=== PATIENT | male | born 1980 | race Caucasian/White ===

== ENCOUNTER 2016-11-30 16:44 | Emergency (ER) | payer OTHER ==
[~2016-11-30] VITALS: Ht 185.4 cm; Wt 122.5 kg
[2016-11-30] MEDS ORDERED: CLINDAMYCIN 900 MG in APPROPRIATE DILUENT 1 EA IV ONE (17:30)
[2016-11-30] MEDS ORDERED: KETOROLAC 30 MG/ML VIAL (J1885) IV ONE (17:30)
[2016-11-30 18:00] LABS: BASO % 0.2 % (0.0-1.0); EOS # 0.1 K/mm3 (0.0-0.50); EOS % 0.8 % (0.0-3.0); LARGE UNSTAINED CELL # 0.1 K/mm3 (0.0-0.4); LARGE UNSTAINED CELL % 1.1 % (0.0-4.0); LYMPH # 1.9 K/mm3 (1.5-4.5); LYMPH % 18.3 % (24.0-44.0); MEAN CORPUSCULAR HEMOGLOBIN 30.3 pg (27.0-33.0); MEAN CORPUSCULAR VOLUME 86.6 fl (80.0-96.0); MONO # 0.4 K/mm3 (0.0-0.8); NEUTROPHILS # 7.6 K/mm3 (1.8-7.7); NEUTROPHILS % 75.6 % (36.0-66.0); PLATELET COUNT, AUTOMATED 227 k/mm3 (150-450); RED CELL DISTRIBUTION WIDTH 13.1 % (11.5-14.5)
[2016-11-30 18:18] LABS: ANION GAP 8 MEQ/L (8-16); BLOOD UREA NITROGEN 8 MG/DL (7-18); CALCIUM LEVEL 8.9 MG/DL (8.5-10.1); CARBON DIOXIDE LEVEL 28 MEQ/L (21-32); CHLORIDE LEVEL 102 MEQ/L (98-107); CREATININE FOR GFR 1.01 MG/DL (0.70-1.30); GLOMERULAR FILTRATION RATE > 60.0 (>60); GLUCOSE, FASTING 293 MG/DL (70-105); POTASSIUM SERUM 4.6 MEQ/L (3.5-5.1); SODIUM LEVEL 138 MEQ/L (136-145)
[2016-11-30] MEDS ORDERED: NS 1,000 ML IV ONE (18:30)
[2016-11-30 18:32] LABS: ERYTHROCYTE SEDIMENTATION RATE 4 mm/hr (0-15)
[2016-11-30] MEDS ORDERED: ISOVUE-370 76% 100ML VIAL (Q9967) As Ordered ONE (20:37)
--- NOTE | 2016-11-30 21:40 | REPUSA ---
HISTORY: Dental abscess TECHNIQUE : CT neck was performed following administration of IV contrast. CT NECK WITH CONTRAST: Paranasal sinuses: Inferior left maxillary 11 mm mucus retention cyst. Dentition: Maxillary dentition is absent. Mandibular dentition demonstrates multiple carries; however , there is no strong clinical evidence of mandibular osteomyelitis. There is asymmetric swelling of t he gingival tissues of the left mandible, without discrete fluid collection. Oropharynx: Patent. Hypopharynx: Patent. Trachea: Midline and patent. Thyroid: No visible masses. Lymph nodes: No pathologic lymphadenopathy. Cervical spine: No compression or listhesis. Lung apices: Clear. Right carotid: Patent. Right vertebral: Patent. Left carotid: Patent. Left vertebral: Patent. IMPRESSION: Findings suggesting gingivitis and soft tissue inflammation of the left mandibular dentit ion, without drainable fluid collections.
[2016-11-30] MEDS ORDERED: CLEO300C2 PO (21:53)
[2016-11-30] MEDS ORDERED: NAPR500T PO (21:53)
[2016-11-30] MEDS ORDERED: NORCO 5/325MG TABLET (BULK) PO ONE (22:00)
[2016-11-30 22:07] VITALS: BP 137/88
== END 2016-11-30 22:11 | disposition home or self-care (01) ==
LOC: M ED 17:58
DX: K02.9 Dental caries, unspecified (principal); K05.00 Acute gingivitis, plaque induced; E13.65 Other specified diabetes mellitus with hyperglycemia
CPT/HCPCS: 70491; 80048; 83036; 85025; 85652; 86140; 96361; 96365; 96375; 99283; J1885; Q9967

== ENCOUNTER 2017-03-09 16:14 | Emergency (ER) | payer MEDICAID, OTHER ==
[~2017-03-09] VITALS: Ht 185.4 cm; Wt 121.0 kg
[2017-03-09 16:14] VITALS: BP 145/84
[~2017-03-09 16:14] MED LIST: CLEO300C2 PO; NAPR500T PO
[2017-03-09] MEDS ORDERED: NAPR500T PO (16:54)
[2017-03-09] MEDS ORDERED: CLIN150C14 PO (16:54)
[2017-03-09] MEDS ORDERED: NAPROXEN 250 MG TAB PO ONE (17:00)
[2017-03-09] MEDS ORDERED: CLINDAMYCIN 150 MG CAP PO ONE (17:00)
== END 2017-03-09 17:09 | disposition home or self-care (01) ==
LOC: M ED 17:04
DX: K04.6 Periapical abscess with sinus (principal); F17.210 Nicotine dependence, cigarettes, uncomplicated

== ENCOUNTER → 2017-04-28 | Outpatient (CLI) | payer OTHER ==
[~2017-04-28] MED LIST changes: +CLIN150C14 PO
[2017-04-28 11:30] LABS: SQUAMOUS EPITHELIAL CELL URINE SMALL AMOUNT /hpf (SMALL AMT)
[2017-04-28 11:32] LABS: BACTERIA, URINE NONE SEEN; HYALINE CAST, URINE NONE SEEN /lpf (0-1); MICROSCOPIC EXAM PERFORMED
== END ==
LOC: M LAB 10:42
PROVIDERS: ATTEND Family Medicine
DX: E11.9 Type 2 diabetes mellitus without complications (principal)

== ENCOUNTER 2017-07-26 15:52 | Emergency (ER) | payer OTHER ==
[~2017-07-26] VITALS: Ht 185.4 cm; Wt 120.5 kg
[2017-07-26] MEDS ORDERED: METF500T13 PO ×2 (16:02)
[2017-07-26] MEDS ORDERED: NEUR300C PO (16:02)
[2017-07-26] MEDS ORDERED: ANEXSIA, NORCO 7.5MG/325MG TABLET(HYDROCODONE/APAP) PO ONE (16:45)
[2017-07-26 17:06] LABS: MEAN CORPUSCULAR HEMOGLOBIN 29.4 pg (27.0-33.0); MEAN CORPUSCULAR VOLUME 84.1 fl (80.0-96.0); PLATELET COUNT, AUTOMATED 259 10^3/uL (150-450); RED CELL DISTRIBUTION WIDTH 12.9 % (11.5-14.5); WHITE BLOOD COUNT 11.9 10^3/uL (4.0-10.0)
--- NOTE | 2017-07-26 18:00 | REPUSA ---
Clinical history: redness, swelling. Findings: Real-time ultrasound imaging of the left groin was performed. Normal heterogeneous fibrogla ndular tissue is noted. Mild soft tissue edema is seen at this site. There is no evidence of a hernia . No focal defined mass or cystic lesion is appreciated. No evidence of calcifications are appreciate d. No other gross abnormalities. Impression: Mild soft tissue edema at the site of concern. No evidence of a hernia. No discrete fluid collection identified.
--- NOTE | 2017-07-26 18:00 | REPUSA ---
Clinical history: Pain. Findings: Real-time ultrasound imaging of the testicles and scrotum was performed. The right testicle measures 5.0 x 2.9 x 3.2 cm. The left testicle measures 5.0 x 2.6 x 2.8 cm. The testicles demonstrat e normal echo texture and echogenicity. Normal color Doppler flow and arterial waveforms are seen asha aterally. Small bilateral hydroceles are seen. Impression: Unremarkable ultrasound examination of the testicles. Small bilateral hydroceles.
[2017-07-26 19:14] LABS: ANION GAP 9 MEQ/L (8-16); BLOOD UREA NITROGEN 13 MG/DL (7-18); CARBON DIOXIDE LEVEL 24 MEQ/L (21-32); CHLORIDE LEVEL 101 MEQ/L (98-107); CREATININE FOR GFR 0.97 MG/DL (0.70-1.30); GLOMERULAR FILTRATION RATE > 60.0 (>60); GLUCOSE, FASTING 320 MG/DL (70-105); POTASSIUM SERUM 4.1 MEQ/L (3.5-5.1); SODIUM LEVEL 134 MEQ/L (136-145)
[2017-07-26] MEDS ORDERED: DOXY-278 PO (19:22)
[2017-07-26] MEDS ORDERED: HYDR-3713 PO (19:22)
[2017-07-26] MEDS ORDERED: DOXYCYCLINE HYCLATE 100 MG TAB PO ONE (19:30)
[2017-07-26 19:33] VITALS: BP 145/94
== END 2017-07-26 19:39 | disposition home or self-care (01) ==
LOC: M ED 15:52
DX: N49.2 Inflammatory disorders of scrotum (principal); L03.314 Cellulitis of groin; N43.3 Hydrocele, unspecified; E11.9 Type 2 diabetes mellitus without complications; F17.200 Nicotine dependence, unspecified, uncomplicated; Z79.84 Long term (current) use of oral hypoglycemic drugs; Z79.899 Other long term (current) drug therapy

== ENCOUNTER 2017-10-12 10:20 | Emergency (ER) | payer OTHER | END 2017-10-12 13:56 | disposition home or self-care (01) | LOC: M ED 10:20 | DX: K05.219 Aggressive periodontitis, localized, unspecified severity (principal); K02.9 Dental caries, unspecified; R03.0 Elevated blood-pressure reading, without diagnosis of hypertension; E11.9 Type 2 diabetes mellitus without complications; F17.200 Nicotine dependence, unspecified, uncomplicated; Z79.899 Other long term (current) drug therapy; Z79.84 Long term (current) use of oral hypoglycemic drugs | CPT/HCPCS: 99283 ==

== ENCOUNTER → 2018-02-02 | Outpatient (REF) | payer OTHER ==
[2018-02-02 14:21] LABS: ANION GAP 8 MEQ/L (8-16); BLOOD UREA NITROGEN 12 MG/DL (7-18); CALCIUM LEVEL 9.3 MG/DL (8.5-10.1); CARBON DIOXIDE LEVEL 26 MEQ/L (21-32); CHLORIDE LEVEL 105 MEQ/L (98-107); CHOLESTEROL LEVEL 182 MG/DL (<200); CHOLESTEROL RISK RATIO 5.352 (<5); CREATININE FOR GFR 0.97 MG/DL (0.70-1.30); GLOMERULAR FILTRATION RATE > 60.0 (>60); GLUCOSE, FASTING 134 MG/DL (70-100); HDL CHOLESTEROL 34 MG/DL (>40); LDL CHOLESTEROL 98.2 MG/DL (<100); NON-HDL-C 148 MG/DL; POTASSIUM SERUM 4.6 MEQ/L (3.5-5.1); SODIUM LEVEL 139 MEQ/L (136-145); TRIGLYCERIDES LEVEL 249 MG/DL (<150)
[2018-02-02 14:25] LABS: ESTIMATED AVERAGE GLUCOSE 169 MG/DL (60-110); HEMOGLOBIN A1c 7.5 %
[2018-02-02 14:51] LABS: CREATININE, URINE 78.2 MG/DL; MALB URINE SIEMENS 21.3 MG/L; MAU/CREAT RATIO 27.2 MCG/MG (0.0-30.0)
== END ==
LOC: M SFHCPLAZ 11:42
DX: E11.65 Type 2 diabetes mellitus with hyperglycemia (principal)
CPT/HCPCS: 83036

== ENCOUNTER 2018-03-02 08:25 | Emergency (ER) | payer OTHER | END 2018-03-02 09:41 | disposition home or self-care (01) | LOC: M ED 08:25 | DX: S02.5XXA Fracture of tooth (traumatic), initial encounter for closed fracture (principal); K02.9 Dental caries, unspecified; K04.7 Periapical abscess without sinus; X58.XXXA Exposure to other specified factors, initial encounter; Y92.9 Unspecified place or not applicable; Y93.9 Activity, unspecified; Y99.9 Unspecified external cause status; E11.9 Type 2 diabetes mellitus without complications; Z72.0 Tobacco use; Z79.84 Long term (current) use of oral hypoglycemic drugs; Z79.899 Other long term (current) drug therapy | CPT/HCPCS: 99282 ==

== ENCOUNTER → 2018-06-08 | Outpatient (REF) | payer OTHER ==
[2018-06-08 13:07] LABS: ALBUMIN 4.2 GM/DL (3.2-5.2); ALBUMIN/GLOBULIN RATIO 1.24 (1.00-1.93); ALKALINE PHOSPHATASE 94 U/L (45-117); ALT/SGPT 34 U/L (12-78); ANION GAP 11 MEQ/L (8-16); AST/SGOT 15 U/L (7-37); BILIRUBIN,TOTAL 0.3 MG/DL (0.2-1.0); BLOOD UREA NITROGEN 12 MG/DL (7-18); CALCIUM LEVEL 9.1 MG/DL (8.5-10.1); CARBON DIOXIDE LEVEL 24 MEQ/L (21-32); CHLORIDE LEVEL 104 MEQ/L (98-107); CREATININE FOR GFR 0.83 MG/DL (0.70-1.30); GLOMERULAR FILTRATION RATE > 60.0 (>60); GLUCOSE, FASTING 134 MG/DL (70-100); POTASSIUM SERUM 4.5 MEQ/L (3.5-5.1); SODIUM LEVEL 139 MEQ/L (136-145); TOTAL PROTEIN 7.6 GM/DL (6.4-8.2)
[2018-06-08 13:10] LABS: BASO # 0.1 10^3/uL (0.0-0.2); BASO % 0.7 % (0.0-1.0); EOS # 0.1 10^3/uL (0.0-0.50); EOS % 1.5 % (0.0-3.0); HEMATOCRIT 52.4 % (42.0-52.0); HEMOGLOBIN 17.8 g/dl (13.5-17.5); IMMATURE GRANULOCYTE % 0.4 % (0-3.0); LYMPH # 2.7 10^3/uL (1.5-4.5); LYMPH % 32.7 % (24.0-44.0); MEAN CORPUSCULAR HEMOGLOBIN 29.1 pg (27.0-33.0); MEAN CORPUSCULAR VOLUME 85.8 fl (80.0-96.0); MONO # 0.6 10^3/uL (0.0-0.8); NEUTROPHILS # 4.7 10^3/uL (1.8-7.7); NEUTROPHILS % 57.7 % (36.0-66.0); PLATELET COUNT, AUTOMATED 238 10^3/uL (150-450); RED BLOOD COUNT 6.11 10^6/uL (4.30-6.10); RED CELL DISTRIBUTION WIDTH 13.8 % (11.5-14.5); WHITE BLOOD COUNT 8.2 10^3/uL (4.0-10.0)
== END ==
LOC: M SFHCPLAZ 08:14
DX: G62.9 Polyneuropathy, unspecified (principal)

== ENCOUNTER → 2018-10-06 | Outpatient (REF) | payer OTHER ==
[~2018-10-06] MED LIST changes: +DOXY-350 PO; +HYDR-3713 PO; +IBUP80TA PO; +JARD1TAB3 PO; +METF500T13 PO; +NAPR-50 PO; -NAPR500T PO; +NEUR300C PO; +NORCOTAB PO; +PENI500T OR; +PERC5TAB12 PO; +TYLE325T5 PO; +XYZA5TAB2 PO
[2018-10-06 15:47] LABS: BLOOD UREA NITROGEN 15 MG/DL (7-18); CALCIUM LEVEL 9.5 MG/DL (8.5-10.1); CARBON DIOXIDE LEVEL 24 MEQ/L (21-32); CHLORIDE LEVEL 104 MEQ/L (98-107); CREATININE FOR GFR 0.91 MG/DL (0.70-1.30); GLOMERULAR FILTRATION RATE > 60.0 (>60); GLUCOSE, FASTING 157 MG/DL (70-100); POTASSIUM SERUM 4.5 MEQ/L (3.5-5.1); SODIUM LEVEL 138 MEQ/L (136-145)
[2018-10-06 16:28] LABS: HEMOGLOBIN A1c 7.9 %
[2018-10-06 16:29] LABS: CREATININE, URINE 57.4 MG/DL; MALB URINE SIEMENS 30.2 MG/L; MAU/CREAT RATIO 52.6 MCG/MG (0.0-30.0)
== END ==
LOC: M SFHCPLAZ 11:49
PROVIDERS: ATTEND Family Medicine
DX: G62.9 Polyneuropathy, unspecified (principal); E11.65 Type 2 diabetes mellitus with hyperglycemia

== ENCOUNTER 2019-03-29 20:37 | Emergency (ER) | payer OTHER ==
[~2019-03-29] VITALS: Ht 185.4 cm; Wt 118.2 kg
[~2019-03-29 20:37] MED LIST changes: +HYDR-3715 PO; -NAPR-50 PO; +NAPR-837 PO; -NORCOTAB PO
[2019-03-29] MEDS ORDERED: STEG15TA (20:43)
[2019-03-29 23:15] VITALS: BP 158/87
--- NOTE | 2019-03-30 07:44 | REP ---
Fifth digit right foot four views: I suspect a nondisplaced fracture at the neck of the middle phalange. I also suspect a nondisplaced fracture at the neck of the distal phalange. There is diffuse soft tissue edema. There are no calcifications or foreign bodies. Electronically Signed by Alden Baker MD 03/30/2019 07:37 A
== END 2019-03-29 23:17 | disposition home or self-care (01) ==
LOC: M ED 20:37
DX: S92.354A Nondisplaced fracture of fifth metatarsal bone, right foot, initial encounter for closed fracture (principal); W23.0XXA Caught, crushed, jammed, or pinched between moving objects, initial encounter; Y92.89 Other specified places as the place of occurrence of the external cause; Y99.0 Civilian activity done for income or pay; E11.9 Type 2 diabetes mellitus without complications; Z79.84 Long term (current) use of oral hypoglycemic drugs

== ENCOUNTER → 2019-08-05 | Outpatient (REF) | payer OTHER ==
[~2019-08-05] MED LIST changes: +STEG15TA
[2019-08-05 17:36] LABS: HEMOGLOBIN A1c 7.6 %
[2019-08-05 17:49] LABS: BLOOD UREA NITROGEN 13 MG/DL (7-18); CALCIUM LEVEL 9.1 MG/DL (8.5-10.1); CARBON DIOXIDE LEVEL 30 MEQ/L (21-32); CHLORIDE LEVEL 102 MEQ/L (98-107); CREATININE FOR GFR 1.03 MG/DL (0.70-1.30); GLOMERULAR FILTRATION RATE > 60.0 (>60); GLUCOSE, FASTING 126 MG/DL (70-100); POTASSIUM SERUM 4.1 MEQ/L (3.5-5.1); SODIUM LEVEL 138 MEQ/L (136-145)
== END ==
LOC: M SFHCPLAZ 15:39
PROVIDERS: ATTEND Physician Assistant
DX: E11.9 Type 2 diabetes mellitus without complications (principal)

== ENCOUNTER 2020-05-08 23:26 | Emergency (ER) | payer OTHER ==
[~2020-05-08] VITALS: Ht 185.4 cm; Wt 120.5 kg
[2020-05-08] MEDS ORDERED: GABA-845 PO (23:34)
[2020-05-09 00:30] LABS: BASO # 0.1 10^3/uL (0.0-0.2); BASO % 0.5 % (0.0-1.0); EOS # 0.1 10^3/uL (0.0-0.5); EOS % 0.7 % (0.0-3.0); HEMATOCRIT 44.9 % (42.0-52.0); HEMOGLOBIN 16.2 g/dl (13.5-17.5); LYMPH # 1.9 10^3/uL (1.5-5.0); LYMPH % 19.5 % (24.0-44.0); MEAN CORPUSCULAR HEMOGLOBIN 30.3 pg (27.0-33.0); MEAN CORPUSCULAR HGB CONC 36.1 g/dl (32.0-36.5); MEAN CORPUSCULAR VOLUME 83.9 fl (80.0-96.0); MONO # 0.5 10^3/uL (0.0-0.8); MONO % 5.5 % (0.0-5.0); NEUTROPHILS # 7.2 10^3/uL (1.5-8.5); NEUTROPHILS % 73.3 % (36.0-66.0); PLATELET COUNT, AUTOMATED 219 10^3/uL (150-450); RED BLOOD COUNT 5.35 10^6/uL (4.30-6.10); WHITE BLOOD COUNT 9.8 10^3/uL (4.0-10.0)
[2020-05-09] MEDS ORDERED: GI COCKTAIL 50ML BTL(HYOSCYAMINE/MAALOX/LIDOCAINE VISCOUS)(1:3:1) PO ONE (00:45)
[2020-05-09] MEDS ORDERED: NS 1,000 ML IV ONE (00:45)
[2020-05-09] MEDS ORDERED: ONDANSETRON 4MG/2ML VIAL IV ONE (00:45)
[2020-05-09 01:00] LABS: ALBUMIN 3.8 GM/DL (3.2-5.2); ALT/SGPT 84 U/L (12-78); BILIRUBIN,DIRECT 0.2 MG/DL (0.0-0.2); BILIRUBIN,TOTAL 0.5 MG/DL (0.2-1.0); BLOOD UREA NITROGEN 13 MG/DL (7-18); CALCIUM LEVEL 9.4 MG/DL (8.5-10.1); CARBON DIOXIDE LEVEL 24 MEQ/L (21-32); CHLORIDE LEVEL 101 MEQ/L (98-107); CK-MB VALUE MASS < 1.0 NG/ML (<3.6); CPK CREATINE PHOSPHOKINASE 94 U/L (39-308); CREATININE FOR GFR 1.02 MG/DL (0.70-1.30); GLOMERULAR FILTRATION RATE > 60.0 (>60); GLUCOSE, FASTING 264 MG/DL (70-100); LIPASE 115 U/L (73-393); MB/CK RELATIVE INDEX 1.06 (< OR =4); POTASSIUM SERUM 4.1 MEQ/L (3.5-5.1); SODIUM LEVEL 134 MEQ/L (136-145); TOTAL PROTEIN 7.4 GM/DL (6.4-8.2); TROPONIN I < 0.02 NG/ML (< 0.10)
[2020-05-09] MEDS ORDERED: KETOROLAC 30 MG/ML 1ML VIAL IV ONE (01:30)
[2020-05-09] MEDS ORDERED: PANTOPRAZOLE 40MG VIAL (C9113 PER 1) IV ONE (01:30)
[2020-05-09] MEDS ORDERED: ISOVUE-370 76% 100ML VIAL As Ordered ONE (01:38)
--- NOTE | 2020-05-09 02:14 | REPVR ---
PROCEDURE INFORMATION: Exam: CT Abdomen and Pelvis with Contrast Exam date and time: 05/09/20 (1:46am) Age: 39 years old Clinical indication: Epigastric pain TECHNIQUE: Imaging protocol: Computed tomography of the abdomen and pelvis with intravenous contrast. Radiation optimization: All CT scans at this facility use at least one of these dose optimization techniques: automated exposure control; mA and/or kV adjustment per patient size (includes targeted exams where dose is matched to clinical indication); or iterative reconstruction. Contrast material: Iso Contrast volume: 100 ml Contrast route: IV COMPARISON: CT ABDOMEN PELVIS of 01/29/16 FINDINGS: Lower lung martines: Minimal streaky changes anteriorly at the left lung base (unchanged). No pleural effusions. Liver: Normal. No mass. Mild diffuse fatty infiltration. Gallbladder and bile ducts: Rim-calcified gallstone (1.6 cm size). No ductal dilatation. Pancreas: Normal. No ductal dilatation. Spleen: Normal. No splenomegaly. Adrenals: Normal. No mass. Kidneys and ureters: No hydronephrosis. Small anterior right renal cyst (7 mm size), just below the renal hilum. Stomach and bowel: Unremarkable. No bowel obstruction. No mucosal thickening. Appendix: A normal appendix is visualized. Intraperitoneal space: Unremarkable. No free air. No significant fluid collection. Vasculature: Unremarkable. No abdominal aortic aneurysm. Lymph nodes: Unremarkable. No enlarged lymph nodes. Bladder: Unremarkable as visualized. Reproductive: Unremarkable as visualized. Bones/joints: Unremarkable. No acute fracture. Soft tissues: Unremarkable. IMPRESSION: No acute findings. Calcified gallstone (1.6 cm size). Mildly distended gallbladder. No acute bowel pathology. Electronically signed by: Jacque Lopez On 05/09/2020 02:15:05 AM
--- NOTE | 2020-05-09 02:37 | REPVR ---
PROCEDURE INFORMATION: Exam: US Abdomen, Limited; Right Upper Quadrant Exam date and time: 05/09/20 (2:11am) Age: 39 years old Clinical indication: Acute abdominal pain / epigastric pain TECHNIQUE: Imaging protocol: US abdomen. Real time ultrasound with image documentation. Limited examination focused on the right upper quadrant. COMPARISON: CT ABDOMEN PELVIS of 05/09/20 FINDINGS: The liver may be mildly enlarged (visually), with fatty infiltration. Echogenic gallstone (2.6 cm diameter). The gallbladder has normal wall thickness (2.1 mm). No pericholecystic fluid is appreciated. The sonographic Mckeon's sign is reported to be (+). The CBD is mildly dilated (5.9 mm diameter). The pancreas is not well visualized. The right kidney measures 14.4 cm in length, with no hydronephrosis appreciated. No ascites is seen. IMPRESSION: Possible acute cholecystitis. Calcified gallstone (2.6 cm size). The sonographic Mckeon's sign is reported to be (+). Mildly dilated CBD (5.9 mm diameter). Clinical correlation is needed. Electronically signed by: Jacque Lopez On 05/09/2020 02:37:15 AM
[2020-05-09] MEDS ORDERED: ZOFR4TAB16 PO (02:50)
[2020-05-09 03:00] VITALS: BP 142/78
[2020-05-24] MEDS ORDERED: MAPA500T2 PO (11:44)
[2020-05-24] MEDS ORDERED: LEVOTAB10 PO (11:44)
--- NOTE | 2020-06-01 16:17 | ECGEPIP ---
SINUS RHYTHM SEE SCANNED DOWNTIME REPORT MTDD
== END 2020-05-09 03:01 | disposition home or self-care (01) ==
LOC: M ED 23:26
DX: K80.00 Calculus of gallbladder with acute cholecystitis without obstruction (principal); R11.2 Nausea with vomiting, unspecified; E11.9 Type 2 diabetes mellitus without complications; J30.2 Other seasonal allergic rhinitis; Z79.84 Long term (current) use of oral hypoglycemic drugs; Z79.899 Other long term (current) drug therapy
CPT/HCPCS: 74177; 76705; 80048; 80076; 82550; 82553; 83690; 85025; 93005; 96361; 96374; 96375; 99284; C9113; J1885; J2405; Q9967

== ENCOUNTER → 2020-05-30 | Outpatient (CLI) | payer OTHER ==
[~2020-05-30] MED LIST changes: +GABA-845 PO; +LEVOTAB10 PO; +MAPA500T2 PO; +ZOFR4TAB16 PO
[2020-05-30 18:07] LABS: HEMOGLOBIN A1c 9.4 %
[2020-05-30 18:12] LABS: BLOOD UREA NITROGEN 10 MG/DL (7-18); CALCIUM LEVEL 9.2 MG/DL (8.5-10.1); CARBON DIOXIDE LEVEL 27 MEQ/L (21-32); CHLORIDE LEVEL 102 MEQ/L (98-107); CREATININE FOR GFR 1.01 MG/DL (0.70-1.30); GLOMERULAR FILTRATION RATE > 60.0 (>60); GLUCOSE, FASTING 266 MG/DL (70-100); POTASSIUM SERUM 4.1 MEQ/L (3.5-5.1); SODIUM LEVEL 134 MEQ/L (136-145)
== END ==
LOC: M PLALAB 14:12
PROVIDERS: ATTEND Family Medicine
DX: Z01.818 Encounter for other preprocedural examination (principal); E11.9 Type 2 diabetes mellitus without complications

== ENCOUNTER → 2020-05-31 | Outpatient (CLI) | payer OTHER | LOC: M LABSMTC 09:54 | PROVIDERS: ATTEND Anesthesiology | DX: Z01.818 Encounter for other preprocedural examination (principal); Z11.59 Encounter for screening for other viral diseases; Z20.828 Contact with and (suspected) exposure to other viral communicable diseases | CPT/HCPCS: C9803; U0003 ==

== ENCOUNTER → 2020-12-07 | Outpatient (REF) | payer OTHER ==
[~2020-12-07] MED LIST changes: -CLIN150C14 PO; +CLIN150C15 PO
[2020-12-07 14:19] LABS: HEMOGLOBIN A1c 8.2 %
[2020-12-07 14:22] LABS: ALBUMIN 4.4 GM/DL (3.2-5.2); ALT/SGPT 34 U/L (12-78); BILIRUBIN,TOTAL 0.5 MG/DL (0.2-1.0); BLOOD UREA NITROGEN 14 MG/DL (7-18); CALCIUM LEVEL 9.8 MG/DL (8.5-10.1); CARBON DIOXIDE LEVEL 28 MEQ/L (21-32); CHLORIDE LEVEL 103 MEQ/L (98-107); CHOLESTEROL LEVEL 209 MG/DL (<200); CHOLESTEROL RISK RATIO 6.333 (<5); CREATININE FOR GFR 0.92 MG/DL (0.70-1.30); GLOMERULAR FILTRATION RATE > 60.0 (>60); GLUCOSE, FASTING 157 MG/DL (70-100); HDL CHOLESTEROL 33 MG/DL (>40); NON-HDL-C 176 MG/DL; POTASSIUM SERUM 4.5 MEQ/L (3.5-5.1); SODIUM LEVEL 137 MEQ/L (136-145); TOTAL PROTEIN 7.6 GM/DL (6.4-8.2); TRIGLYCERIDES LEVEL 487 MG/DL (<150)
[2020-12-07 14:29] LABS: CREATININE, URINE 72.9 MG/DL; MALB URINE SIEMENS 43.6 MG/L; MAU/CREAT RATIO 59.8 MCG/MG (0.0-30.0)
== END ==
LOC: M SFHCPLAZ 09:12
PROVIDERS: ATTEND Physician Assistant
DX: E11.65 Type 2 diabetes mellitus with hyperglycemia (principal)

== ENCOUNTER 2020-12-10 10:43 | Emergency (ER) | payer OTHER ==
[~2020-12-10] VITALS: Ht 185.4 cm; Wt 121.3 kg
[2020-12-10] MEDS ORDERED: TRUL10IN (10:49)
[2020-12-10] MEDS ORDERED: CLEO300C2 PO (12:01)
[2020-12-10 12:15] VITALS: BP 133/88
== END 2020-12-10 12:15 | disposition home or self-care (01) ==
LOC: M ED 10:43
DX: K04.7 Periapical abscess without sinus (principal); R09.81 Nasal congestion; E11.9 Type 2 diabetes mellitus without complications; J30.2 Other seasonal allergic rhinitis; F17.200 Nicotine dependence, unspecified, uncomplicated; Z79.899 Other long term (current) drug therapy

== ENCOUNTER → 2021-03-17 | Outpatient (CLI) | payer OTHER ==
[~2021-03-17] MED LIST changes: +GABA-283 PO; -GABA-845 PO; +TRUL10IN
[2021-03-17 11:22] LABS: HEMOGLOBIN A1c 7.7 %
[2021-03-17 11:30] LABS: BLOOD UREA NITROGEN 13 MG/DL (7-18); CARBON DIOXIDE LEVEL 25 MEQ/L (21-32); CHLORIDE LEVEL 106 MEQ/L (98-107); CREATININE FOR GFR 1.09 MG/DL (0.70-1.30); GLOMERULAR FILTRATION RATE > 60.0 (>60); GLUCOSE, FASTING 269 MG/DL (70-100); POTASSIUM SERUM 4.1 MEQ/L (3.5-5.1); SODIUM LEVEL 137 MEQ/L (136-145)
== END ==
LOC: M LAB 10:41
PROVIDERS: ATTEND Physician Assistant
DX: E11.65 Type 2 diabetes mellitus with hyperglycemia (principal)

== ENCOUNTER 2021-06-20 08:37 | Emergency (ER) | payer OTHER ==
[~2021-06-20] VITALS: Ht 185.4 cm; Wt 120.1 kg
[~2021-06-20 08:37] MED LIST changes: -CLIN150C15 PO; +CLIN150C17 PO
[2021-06-20] MEDS ORDERED: GABA600T4 (08:45)
[2021-06-20] MEDS ORDERED: CLINDAMYCIN 150MG CAPSULE PO ONE (10:10)
[2021-06-20] MEDS ORDERED: IBUP80TA PO (11:14)
[2021-06-20] MEDS ORDERED: CLEO300C2 PO (11:14)
[2021-06-20 11:25] VITALS: BP 158/93
== END 2021-06-20 11:26 | disposition home or self-care (01) ==
LOC: M ED 08:37
DX: K04.7 Periapical abscess without sinus (principal); K08.89 Other specified disorders of teeth and supporting structures; E11.9 Type 2 diabetes mellitus without complications; F17.200 Nicotine dependence, unspecified, uncomplicated; J30.2 Other seasonal allergic rhinitis; Z79.899 Other long term (current) drug therapy

== ENCOUNTER → 2021-08-18 | Outpatient (CLI) | payer OTHER ==
[~2021-08-18] MED LIST changes: +GABA600T4
[2021-08-18 11:34] LABS: HEMOGLOBIN A1c 7.8 %
[2021-08-18 11:45] LABS: BLOOD UREA NITROGEN 12 MG/DL (7-18); CALCIUM LEVEL 9.7 MG/DL (8.5-10.1); CARBON DIOXIDE LEVEL 29 MEQ/L (21-32); CHLORIDE LEVEL 107 MEQ/L (98-107); CREATININE FOR GFR 0.94 MG/DL (0.70-1.30); GLOMERULAR FILTRATION RATE > 60.0 (>60); GLUCOSE, FASTING 127 MG/DL (70-100); POTASSIUM SERUM 4.3 MEQ/L (3.5-5.1); SODIUM LEVEL 140 MEQ/L (136-145)
== END ==
LOC: M LAB 10:41
PROVIDERS: ATTEND Physician Assistant
DX: E11.9 Type 2 diabetes mellitus without complications (principal)

== ENCOUNTER 2022-06-30 08:09 | Emergency (ER) | payer OTHER ==
[~2022-06-30 08:09] MED LIST changes: -GABA600T4; +GABA600T4 PO; -STEG15TA; +STEG15TA PO
[2022-06-30] MEDS ORDERED: BENZOCAINE 20% GEL 9GM TUBE (ANBESOL MAX STRENGTH) TOP ONE (09:15)
[2022-06-30] MEDS ORDERED: ACETAMINOPHEN TAB 650MG DOSE (2X325MG) PO ONE (09:45)
[2022-06-30] MEDS ORDERED: IBUPROFEN 800 MG TAB PO ONE (09:45)
[2022-06-30] MEDS ORDERED: KETO10TAB PO (09:51)
[2022-06-30] MEDS ORDERED: CLEO300C2 PO (09:51)
[2022-06-30 10:48] VITALS: BP 154/92
== END 2022-06-30 10:56 | disposition home or self-care (01) ==
LOC: M ED 08:09
DX: K05.00 Acute gingivitis, plaque induced (principal); K02.9 Dental caries, unspecified; F17.200 Nicotine dependence, unspecified, uncomplicated; Z79.899 Other long term (current) drug therapy

== ENCOUNTER 2022-07-09 07:22 | Observation (INO) | payer OTHER ==
[~2022-07-09] VITALS: Ht 185.4 cm; Wt 109.9 kg
[~2022-07-09 07:22] MED LIST changes: +KETO10TAB PO
[2022-07-09] MEDS ORDERED: PIPERACILLIN/TAZOBACTAM SOD 3.375 GM in D5W MINI-BAG PLUS 50 ML IV ONE (08:25)
[2022-07-09] MEDS ORDERED: VANCOMYCIN HCL 2,000 MG in D5W 500 ML IV ONE (08:30)
[2022-07-09 09:00] LABS: BASO # 0.1 10^3/uL (0.0-0.2); BASO % 0.4 % (0.0-1.0); EOS # 0.1 10^3/uL (0.0-0.5); EOS % 0.6 % (0.0-3.0); HEMATOCRIT 48.8 % (42.0-52.0); HEMOGLOBIN 16.7 g/dl (13.5-17.5); LYMPH % 17.8 % (24.0-44.0); MEAN CORPUSCULAR HEMOGLOBIN 29.5 pg (27.0-33.0); MEAN CORPUSCULAR HGB CONC 34.2 g/dl (32.0-36.5); MEAN CORPUSCULAR VOLUME 86.2 fl (80.0-96.0); MONO # 0.7 10^3/uL (0.0-0.8); NEUTROPHILS # 8.6 10^3/uL (1.5-8.5); NEUTROPHILS % 74.9 % (36.0-66.0); PLATELET COUNT, AUTOMATED 250 10^3/uL (150-450); RED BLOOD COUNT 5.66 10^6/uL (4.30-6.10); WHITE BLOOD COUNT 11.4 10^3/uL (4.0-10.0)
[2022-07-09] MEDS: ENOXAPARIN 40MG/0.4ML SYRINGE (J1650 PER 10MG) SC SCH (09:00)
[2022-07-09] MEDS: GABAPENTIN 300 MG CAP PO SCH (09:00)
[2022-07-09 09:21] LABS: BLOOD UREA NITROGEN 14 MG/DL (7-18); C REACTIVE PROTEIN QUANTITATIV 7.34 MG/DL (0.00-0.30); CALCIUM LEVEL 9.3 MG/DL (8.5-10.1); CARBON DIOXIDE LEVEL 24 MEQ/L (21-32); CHLORIDE LEVEL 105 MEQ/L (98-107); CREATININE FOR GFR 0.98 MG/DL (0.70-1.30); GLOMERULAR FILTRATION RATE > 60.0 (>60); GLUCOSE, FASTING 185 MG/DL (70-100); POTASSIUM SERUM 4.3 MEQ/L (3.5-5.1); SODIUM LEVEL 134 MEQ/L (136-145)
[2022-07-09] MEDS ORDERED: NS 1,000 ML IV ONE (09:55)
[2022-07-09] MEDS ORDERED: VANCOMYCIN HCL 1,000 MG, VIAL MATE ADAPTER 1 EACH in NS 250 ML IV ONE ×2 (10:00→11:00)
[2022-07-09] MEDS ORDERED: BOOSTRIX/ADACEL VACCINE (DIPHTH/PERTUSS/ACELL/TETANUS) 0.5ML SYR IM ONE (10:05)
[2022-07-09 10:06] LABS: RSV AMPLIFICATION NEGATIVE (NEGATIVE)
[2022-07-09 10:16] LABS: ERYTHROCYTE SEDIMENTATION RATE 18 mm/hr (0-15)
[2022-07-09] MEDS ORDERED: GLUCOSE 4GM CHEW TABLET PO PRN (10:25)
[2022-07-09] MEDS ORDERED: GLUCAGON INJ 1MG VIAL SC PRN (10:25)
[2022-07-09] MEDS ORDERED: DEXTROSE 50% 50 ML SYRINGE IV PRN (10:25)
[2022-07-09] MEDS ORDERED: DULA3PEN SC (10:31)
[2022-07-09] MEDS ORDERED: HOME MED LIST COMPLETE! XX SCH (10:35)
[2022-07-09 10:37] LABS: HEMOGLOBIN A1c 8.4 %
[2022-07-09] MEDS: INSULIN LISPRO (NovoLOG) PER UNIT SC SCH ×2 (12:00→17:22)
[2022-07-09] MEDS ORDERED: NICOTINE 21MG/24HR 1 EA TRANSDERMAL TD STA (15:36)
[2022-07-09] MEDS: PIPERACILLIN/TAZOBACTAM SOD 3.375 GM in D5W MINI-BAG PLUS 50 ML IV SCH ×2 (16:33→22:46)
[2022-07-09] MEDS: VANCOMYCIN HCL 1,000 MG, VIAL MATE ADAPTER 1 EACH in D5W 250 ML IV SCH (18:38)
[2022-07-09] MEDS ORDERED: INSULIN LISPRO (NovoLOG) PER UNIT SC SCH (21:00)
[2022-07-09] MEDS ORDERED: GABAPENTIN 400MG CAP PO SCH (21:00)
[2022-07-09 22:40] VITALS: BP 141/93
[2022-07-10] MEDS: VANCOMYCIN HCL 1,000 MG, VIAL MATE ADAPTER 1 EACH in D5W 250 ML IV SCH ×2 (02:24→10:54)
[2022-07-10] MEDS: PIPERACILLIN/TAZOBACTAM SOD 3.375 GM in D5W MINI-BAG PLUS 50 ML IV SCH ×2 (04:27→09:21)
[2022-07-10 06:00] VITALS: BP 119/80
[2022-07-10 06:26] LABS: HEMATOCRIT 47.4 % (42.0-52.0); HEMOGLOBIN 16.1 g/dl (13.5-17.5); MEAN CORPUSCULAR HEMOGLOBIN 29.5 pg (27.0-33.0); PLATELET COUNT, AUTOMATED 239 10^3/uL (150-450); RED BLOOD COUNT 5.45 10^6/uL (4.30-6.10); WHITE BLOOD COUNT 8.9 10^3/uL (4.0-10.0)
[2022-07-10 06:59] LABS: BLOOD UREA NITROGEN 15 MG/DL (7-18); C REACTIVE PROTEIN QUANTITATIV 7.53 MG/DL (0.00-0.30); CARBON DIOXIDE LEVEL 25 MEQ/L (21-32); CHLORIDE LEVEL 103 MEQ/L (98-107); CREATININE FOR GFR 0.98 MG/DL (0.70-1.30); GLOMERULAR FILTRATION RATE > 60.0 (>60); GLUCOSE, FASTING 134 MG/DL (70-100); POTASSIUM SERUM 4.2 MEQ/L (3.5-5.1); SODIUM LEVEL 136 MEQ/L (136-145)
[2022-07-10] MEDS: INSULIN LISPRO (NovoLOG) PER UNIT SC SCH ×2 (07:30→12:00)
[2022-07-10] MEDS: GABAPENTIN 300 MG CAP PO SCH (09:00)
[2022-07-10] MEDS: ENOXAPARIN 40MG/0.4ML SYRINGE (J1650 PER 10MG) SC SCH (09:00)
[2022-07-10] MEDS ORDERED: BACT800T5 PO (11:48)
== END 2022-07-10 13:22 | disposition home or self-care (01) ==
LOC: M ED 07:22 → M ED INP 07:23 → M MSPAV 22:39
PROVIDERS: ADMIT Internal Medicine; ATTEND Internal Medicine
DX: E11.621 Type 2 diabetes mellitus with foot ulcer (principal); S91.331A Puncture wound without foreign body, right foot, initial encounter; L03.90 Cellulitis, unspecified; D72.829 Elevated white blood cell count, unspecified; E11.40 Type 2 diabetes mellitus with diabetic neuropathy, unspecified; J30.2 Other seasonal allergic rhinitis; F12.10 Cannabis abuse, uncomplicated; F17.210 Nicotine dependence, cigarettes, uncomplicated; Z79.899 Other long term (current) drug therapy; Z79.84 Long term (current) use of oral hypoglycemic drugs; W45.0XXA Nail entering through skin, initial encounter; Y92.89 Other specified places as the place of occurrence of the external cause; Y93.9 Activity, unspecified; Y99.9 Unspecified external cause status
CPT/HCPCS: 10060; 36415; 73630; 80048; 80202; 83036; 83605; 85025; 85027; 85652; 86140; 87631; 90471; 90715; 96365; 96366; 96367; 96375; 99284; J2543; J3370

== ENCOUNTER → 2022-12-14 | Outpatient (CLI) | payer OTHER ==
[~2022-12-14] MED LIST changes: +BACT800T5 PO; -DOXY-350 PO; +DOXY-444 PO; +DULA3PEN SC
[2022-12-14 10:11] LABS: BASO # 0.1 10^3/uL (0.0-0.2); BASO % 0.5 % (0.0-1.0); EOS # 0.1 10^3/uL (0.0-0.5); EOS % 1.2 % (0.0-3.0); HEMATOCRIT 52.7 % (42.0-52.0); HEMOGLOBIN 18.1 g/dl (13.5-17.5); LYMPH # 2.7 10^3/uL (1.5-5.0); LYMPH % 29.7 % (24.0-44.0); MEAN CORPUSCULAR HEMOGLOBIN 29.1 pg (27.0-33.0); MEAN CORPUSCULAR HGB CONC 34.3 g/dl (32.0-36.5); MEAN CORPUSCULAR VOLUME 84.7 fl (80.0-96.0); MONO # 0.5 10^3/uL (0.0-0.8); MONO % 5.8 % (2.0-8.0); NEUTROPHILS # 5.7 10^3/uL (1.5-8.5); NEUTROPHILS % 62.3 % (36.0-66.0); PLATELET COUNT, AUTOMATED 216 10^3/uL (150-450); RED BLOOD COUNT 6.22 10^6/uL (4.30-6.10); WHITE BLOOD COUNT 9.1 10^3/uL (4.0-10.0)
[2022-12-14 10:18] LABS: HEMOGLOBIN A1c 8.6 % (4.0-6.0)
[2022-12-14 10:28] LABS: ALBUMIN 4.1 G/DL (3.2-5.2); ALKALINE PHOSPHATASE 88 U/L (46-116); ALT/SGPT 27 U/L (7.0-40); AST/SGOT 15 U/L (<34); BILIRUBIN,TOTAL 0.7 MG/DL (0.3-1.2); BLOOD UREA NITROGEN 11 MG/DL (9-23); CALCIUM LEVEL 9.3 MG/DL (8.5-10.1); CARBON DIOXIDE LEVEL 26 MMOL/L (20-31); CHLORIDE LEVEL 106 MMOL/L (98-107); CHOLESTEROL LEVEL 224 MG/DL (<200); CHOLESTEROL RISK RATIO 5.78 (<5); CREATININE FOR GFR 0.78 MG/DL (0.70-1.30); GLOMERULAR FILTRATION RATE > 60.0 (>60); GLUCOSE, FASTING 150 MG/DL (60-100); HDL CHOLESTEROL 38.7 MG/DL (>40); LDL CHOLESTEROL 122.7 MG/DL (<100); NON-HDL-C 185.3 MG/DL; POTASSIUM SERUM 4.4 MMOL/L (3.5-5.1); SODIUM LEVEL 139 MMOL/L (136-145); TRIGLYCERIDES LEVEL 313 MG/DL (<150)
[2022-12-14 10:28] LABS: CREATININE, URINE 79.1 MG/DL
[2022-12-14 10:30] LABS: MAU/CREAT RATIO 15.1 MCG/MG (0.0-30.0)
[2022-12-14 10:32] LABS: FREE T4 1.09 NG/DL (0.89-1.76)
== END ==
LOC: M LAB 09:27
PROVIDERS: ATTEND Nurse Practitioner Family
DX: E11.9 Type 2 diabetes mellitus without complications (principal); J30.9 Allergic rhinitis, unspecified

== ENCOUNTER 2023-04-10 12:51 | Emergency (ER) | payer OTHER ==
[~2023-04-10] VITALS: Ht 185.4 cm; Wt 113.6 kg
[2023-04-10] MEDS ORDERED: ATOR1TAB21 (13:01)
[2023-04-10 15:18] VITALS: BP 136/87; TEMP 97.4; O2SAT 98
== END 2023-04-10 15:23 | disposition home or self-care (01) ==
LOC: M ED 12:51
DX: S76.101A Unspecified injury of right quadriceps muscle, fascia and tendon, initial encounter (principal); E11.9 Type 2 diabetes mellitus without complications; E78.5 Hyperlipidemia, unspecified; F17.200 Nicotine dependence, unspecified, uncomplicated; F12.10 Cannabis abuse, uncomplicated; F10.10 Alcohol abuse, uncomplicated; Y93.02 Activity, running; Z79.02 Long term (current) use of antithrombotics/antiplatelets; Z79.891 Long term (current) use of opiate analgesic; Z79.899 Other long term (current) drug therapy

== ENCOUNTER → 2023-06-28 | Outpatient (CLI) | payer OTHER ==
[~2023-06-28] MED LIST changes: +ATOR1TAB21; -GABA-283 PO; +GABA-284 PO
[2023-06-28 08:47] LABS: BASO # 0.1 10^3/uL (0.0-0.2); BASO % 0.6 % (0.0-1.0); EOS # 0.1 10^3/uL (0.0-0.5); EOS % 1.3 % (0.0-3.0); HEMATOCRIT 51.1 % (42.0-52.0); HEMOGLOBIN 17.8 g/dl (13.5-17.5); LYMPH # 2.4 10^3/uL (1.5-5.0); LYMPH % 28.5 % (24.0-44.0); MEAN CORPUSCULAR HEMOGLOBIN 29.9 pg (27.0-33.0); MEAN CORPUSCULAR HGB CONC 34.8 g/dl (32.0-36.5); MEAN CORPUSCULAR VOLUME 85.9 fl (80.0-96.0); MONO # 0.5 10^3/uL (0.0-0.8); NEUTROPHILS # 5.4 10^3/uL (1.5-8.5); NEUTROPHILS % 63.2 % (36.0-66.0); PLATELET COUNT, AUTOMATED 229 10^3/uL (150-450); RED BLOOD COUNT 5.95 10^6/uL (4.30-6.10); WHITE BLOOD COUNT 8.5 10^3/uL (4.0-10.0)
[2023-06-28 09:10] LABS: HEMOGLOBIN A1c 7.6 % (4.0-6.0)
[2023-06-28 09:20] LABS: ALBUMIN 4.2 G/DL (3.2-5.2); ALKALINE PHOSPHATASE 109 U/L (46-116); ALT/SGPT 22 U/L (7.0-40); AST/SGOT 11 U/L (<34); BILIRUBIN,TOTAL 0.5 MG/DL (0.3-1.2); BLOOD UREA NITROGEN 17 MG/DL (9-23); CALCIUM LEVEL 9.4 MG/DL (8.5-10.1); CARBON DIOXIDE LEVEL 26 MMOL/L (20-31); CHLORIDE LEVEL 106 MMOL/L (98-107); CHOLESTEROL LEVEL 138 MG/DL (<200); CREATININE FOR GFR 0.84 MG/DL (0.70-1.30); GLOMERULAR FILTRATION RATE > 60.0 (>60); GLUCOSE, FASTING 176 MG/DL (60-100); HDL CHOLESTEROL 38.3 MG/DL (>40); LDL CHOLESTEROL 66.9 MG/DL (<100); NON-HDL-C 99.7 MG/DL; POTASSIUM SERUM 4.5 MMOL/L (3.5-5.1); SODIUM LEVEL 139 MMOL/L (136-145); TOTAL PROTEIN 7.2 G/DL (5.7-8.2); TRIGLYCERIDES LEVEL 164 MG/DL (<150); VITAMIN B12 LEVEL 763 PG/ML (211-911)
[2023-06-28 09:45] LABS: MAU/CREAT RATIO 17.3 MCG/MG (0.0-30.0)
== END ==
LOC: M LAB 08:22
PROVIDERS: ATTEND Nurse Practitioner Family
DX: J30.9 Allergic rhinitis, unspecified (principal); G62.9 Polyneuropathy, unspecified; E78.5 Hyperlipidemia, unspecified; E11.9 Type 2 diabetes mellitus without complications

== ENCOUNTER → 2023-10-22 | Outpatient (CLI) | payer OTHER | LOC: M RAD 16:46 | PROVIDERS: ATTEND Nurse Practitioner Family | DX: M54.9 Dorsalgia, unspecified (principal); J40 Bronchitis, not specified as acute or chronic; M47.894 Other spondylosis, thoracic region ==

== ENCOUNTER → 2023-10-25 | Outpatient (CLI) | payer OTHER ==
[2023-10-25 10:08] LABS: BASO # 0.1 10^3/uL (0.0-0.2); BASO % 0.6 % (0.0-1.0); EOS # 0.1 10^3/uL (0.0-0.5); EOS % 1.2 % (0.0-3.0); HEMATOCRIT 49.3 % (42.0-52.0); LYMPH # 2.5 10^3/uL (1.5-5.0); LYMPH % 32.6 % (24.0-44.0); MEAN CORPUSCULAR HEMOGLOBIN 30.5 pg (27.0-33.0); MEAN CORPUSCULAR HGB CONC 34.5 g/dl (32.0-36.5); MEAN CORPUSCULAR VOLUME 88.4 fl (80.0-96.0); MONO # 0.5 10^3/uL (0.0-0.8); MONO % 6.4 % (2.0-8.0); NEUTROPHILS # 4.6 10^3/uL (1.5-8.5); NEUTROPHILS % 58.7 % (36.0-66.0); PLATELET COUNT, AUTOMATED 220 10^3/uL (150-450); RED BLOOD COUNT 5.58 10^6/uL (4.30-6.10); WHITE BLOOD COUNT 7.8 10^3/uL (4.0-10.0)
[2023-10-25 10:32] LABS: ALBUMIN 4.1 G/DL (3.2-5.2); ALKALINE PHOSPHATASE 103 U/L (46-116); ALT/SGPT 28 U/L (7.0-40); AST/SGOT 12 U/L (<34); BILIRUBIN,TOTAL 0.6 MG/DL (0.3-1.2); BLOOD UREA NITROGEN 13 MG/DL (9-23); CALCIUM LEVEL 9.3 MG/DL (8.5-10.1); CARBON DIOXIDE LEVEL 28 MMOL/L (20-31); CHLORIDE LEVEL 105 MMOL/L (98-107); CHOLESTEROL LEVEL 141 MG/DL (<200); CHOLESTEROL RISK RATIO 3.78 (<5); CREATININE FOR GFR 0.79 MG/DL (0.70-1.30); GLOMERULAR FILTRATION RATE > 60.0 (>60); GLUCOSE, FASTING 172 MG/DL (60-100); HDL CHOLESTEROL 37.3 MG/DL (>40); LDL CHOLESTEROL 67.1 MG/DL (<100); NON-HDL-C 103.7 MG/DL; POTASSIUM SERUM 4.4 MMOL/L (3.5-5.1); SODIUM LEVEL 139 MMOL/L (136-145); TOTAL PROTEIN 7.1 G/DL (5.7-8.2); TRIGLYCERIDES LEVEL 183 MG/DL (<150)
[2023-10-25 10:35] LABS: THYROID STIMULATING HORMONE 2.256 uIU/ML (0.55-4.78)
[2023-10-25 10:36] LABS: FREE T4 1.04 NG/DL (0.89-1.76)
[2023-10-25 10:38] LABS: HEMOGLOBIN A1c 8.9 % (4.0-6.0)
== END ==
LOC: M LAB 08:33
PROVIDERS: ATTEND Nurse Practitioner Family
DX: E11.9 Type 2 diabetes mellitus without complications (principal)

== ENCOUNTER → 2024-02-24 | Outpatient (CLI) | payer OTHER ==
[~2024-02-24] MED LIST changes: +DOXY-440 PO; -DOXY-444 PO
== END ==
LOC: M PLAIMG 16:40
PROVIDERS: ATTEND Nurse Practitioner Family
DX: S99.911A Unspecified injury of right ankle, initial encounter (principal); X58.XXXA Exposure to other specified factors, initial encounter; Y92.9 Unspecified place or not applicable

== ENCOUNTER → 2024-02-28 | Outpatient (CLI) | payer OTHER ==
[2024-02-28 09:54] LABS: HEMOGLOBIN A1c 8.5 % (4.0-6.0)
[2024-02-28 09:56] LABS: ALBUMIN 4.4 G/DL (3.2-5.2); ALKALINE PHOSPHATASE 113 U/L (46-116); ALT/SGPT 27 U/L (7.0-40); AST/SGOT 11 U/L (<34); BILIRUBIN,TOTAL 0.7 MG/DL (0.3-1.2); BLOOD UREA NITROGEN 12 MG/DL (9-23); CALCIUM LEVEL 9.7 MG/DL (8.5-10.1); CARBON DIOXIDE LEVEL 25 MMOL/L (20-31); CHLORIDE LEVEL 107 MMOL/L (98-107); CHOLESTEROL LEVEL 131 MG/DL (<200); CHOLESTEROL RISK RATIO 3.87 (<5); GLOMERULAR FILTRATION RATE > 60.0 (>60); GLUCOSE, FASTING 172 MG/DL (60-100); HDL CHOLESTEROL 33.8 MG/DL (>40); LDL CHOLESTEROL 61.6 MG/DL (<100); NON-HDL-C 97.2 MG/DL; POTASSIUM SERUM 4.5 MMOL/L (3.5-5.1); SODIUM LEVEL 138 MMOL/L (136-145); TRIGLYCERIDES LEVEL 178 MG/DL (<150)
[2024-02-28 09:57] LABS: CREATININE, URINE 71.5 MG/DL; MAU/CREAT RATIO 8.3 MCG/MG (0.0-30.0)
== END ==
LOC: M LAB 08:33
PROVIDERS: ATTEND Nurse Practitioner Family
DX: E11.9 Type 2 diabetes mellitus without complications (principal); E78.5 Hyperlipidemia, unspecified

== ENCOUNTER → 2024-06-26 | Outpatient (CLI) | payer OTHER ==
[~2024-06-26] MED LIST changes: +GABA-1490 PO; -GABA600T4 PO
[2024-06-26 09:22] LABS: BASO % 0.6 % (0.0-1.0); EOS # 0.1 10^3/uL (0.0-0.5); EOS % 1.8 % (0.0-3.0); HEMATOCRIT 50.7 % (42.0-52.0); HEMOGLOBIN 17.5 g/dl (13.5-17.5); LYMPH # 2.1 10^3/uL (1.5-5.0); LYMPH % 32.1 % (24.0-44.0); MEAN CORPUSCULAR HEMOGLOBIN 30.1 pg (27.0-33.0); MEAN CORPUSCULAR HGB CONC 34.5 g/dl (32.0-36.5); MEAN CORPUSCULAR VOLUME 87.1 fl (80.0-96.0); MONO # 0.4 10^3/uL (0.0-0.8); MONO % 6.3 % (2.0-8.0); NEUTROPHILS # 3.9 10^3/uL (1.5-8.5); NEUTROPHILS % 58.9 % (36.0-66.0); PLATELET COUNT, AUTOMATED 191 10^3/uL (150-450); RED BLOOD COUNT 5.82 10^6/uL (4.30-6.10); WHITE BLOOD COUNT 6.6 10^3/uL (4.0-10.0)
[2024-06-26 09:47] LABS: ALBUMIN 4.1 G/DL (3.2-5.2); ALKALINE PHOSPHATASE 103 U/L (46-116); ALT/SGPT 28 U/L (7.0-40); AST/SGOT 10 U/L (<34); BILIRUBIN,TOTAL 0.6 MG/DL (0.3-1.2); BLOOD UREA NITROGEN 13 MG/DL (9-23); CALCIUM LEVEL 9.9 MG/DL (8.5-10.1); CARBON DIOXIDE LEVEL 26 MMOL/L (20-31); CHLORIDE LEVEL 106 MMOL/L (98-107); CHOLESTEROL LEVEL 131 MG/DL (<200); CHOLESTEROL RISK RATIO 3.55 (<5); CREATININE FOR GFR 0.82 MG/DL (0.70-1.30); GLOMERULAR FILTRATION RATE > 60.0 (>60); GLUCOSE, FASTING 185 MG/DL (60-100); HDL CHOLESTEROL 36.8 MG/DL (>40); LDL CHOLESTEROL 66.2 MG/DL (<100); NON-HDL-C 94.2 MG/DL; POTASSIUM SERUM 4.7 MMOL/L (3.5-5.1); SODIUM LEVEL 138 MMOL/L (136-145); TOTAL PROTEIN 7.2 G/DL (5.7-8.2); TRIGLYCERIDES LEVEL 140 MG/DL (<150)
[2024-06-26 09:50] LABS: HEMOGLOBIN A1c 7.8 % (4.0-6.0)
== END ==
LOC: M LAB 08:15
PROVIDERS: ATTEND Nurse Practitioner Family
DX: E11.9 Type 2 diabetes mellitus without complications (principal); E78.5 Hyperlipidemia, unspecified

== ENCOUNTER → 2024-10-30 | Outpatient (CLI) | payer OTHER ==
[2024-10-30 08:42] LABS: BASO % 0.5 % (0.0-1.0); EOS # 0.1 10^3/uL (0.0-0.5); EOS % 1.3 % (0.0-3.0); HEMATOCRIT 50.1 % (42.0-52.0); HEMOGLOBIN 17.3 g/dl (13.5-17.5); LYMPH # 2.2 10^3/uL (1.5-5.0); LYMPH % 26.6 % (24.0-44.0); MEAN CORPUSCULAR HEMOGLOBIN 30.4 pg (27.0-33.0); MEAN CORPUSCULAR HGB CONC 34.5 g/dl (32.0-36.5); MEAN CORPUSCULAR VOLUME 87.9 fl (80.0-96.0); MONO # 0.5 10^3/uL (0.0-0.8); MONO % 6.2 % (2.0-8.0); NEUTROPHILS # 5.5 10^3/uL (1.5-8.5); PLATELET COUNT, AUTOMATED 195 10^3/uL (150-450); WHITE BLOOD COUNT 8.4 10^3/uL (4.0-10.0)
[2024-10-30 09:08] LABS: ALBUMIN 4.1 G/DL (3.2-5.2); ALKALINE PHOSPHATASE 105 U/L (40-129); ALT/SGPT 21 U/L (7.0-40); AST/SGOT 11 U/L (<34); BILIRUBIN,TOTAL 0.5 MG/DL (0.3-1.2); BLOOD UREA NITROGEN 17 MG/DL (9-23); CALCIUM LEVEL 9.3 MG/DL (8.5-10.1); CARBON DIOXIDE LEVEL 28 MMOL/L (20-31); CHLORIDE LEVEL 104 MMOL/L (98-107); CHOLESTEROL LEVEL 119 MG/DL (<200); CHOLESTEROL RISK RATIO 3.09 (<5); CREATININE FOR GFR 0.89 MG/DL (0.70-1.30); GLOMERULAR FILTRATION RATE > 60.0 (>60); GLUCOSE, FASTING 156 MG/DL (60-100); HDL CHOLESTEROL 38.5 MG/DL (>40); LDL CHOLESTEROL 44.5 MG/DL (<100); NON-HDL-C 80.5 MG/DL; POTASSIUM SERUM 4.7 MMOL/L (3.5-5.1); SODIUM LEVEL 142 MMOL/L (136-145); TOTAL PROTEIN 7.2 G/DL (5.7-8.2); TRIGLYCERIDES LEVEL 180 MG/DL (<150)
[2024-10-30 09:09] LABS: VITAMIN B12 LEVEL 656 PG/ML (211-911)
[2024-10-30 11:19] LABS: CREATININE, URINE 62.9 MG/DL; MAU/CREAT RATIO 9.5 MCG/MG (0.0-30.0)
== END ==
LOC: M LAB 08:11
PROVIDERS: ATTEND Nurse Practitioner Family
DX: E78.5 Hyperlipidemia, unspecified (principal)

== ENCOUNTER → 2025-07-09 | Outpatient (CLI) | payer OTHER ==
[2025-07-09 10:36] LABS: BASO # 0.1 10^3/uL (0.0-0.2); BASO % 0.7 % (0.0-1.0); EOS # 0.1 10^3/uL (0.0-0.5); EOS % 1.7 % (0.0-3.0); LYMPH # 2.3 10^3/uL (1.5-5.0); LYMPH % 30.3 % (24.0-44.0); MONO # 0.5 10^3/uL (0.0-0.8); MONO % 7.1 % (2.0-8.0); NEUTROPHILS # 4.5 10^3/uL (1.5-8.5); NEUTROPHILS % 59.9 % (36.0-66.0); PLATELET COUNT, AUTOMATED 226 10^3/uL (150-450)
[2025-07-09 11:08] LABS: ESTIMATED AVERAGE GLUCOSE 194.0 MG/DL (60-110)
[2025-07-09 11:09] LABS: ALT/SGPT 28 U/L (7.0-40); AST/SGOT 17 U/L (<34); CALCIUM LEVEL 9.4 MG/DL (8.5-10.1); CARBON DIOXIDE LEVEL 28 MMOL/L (20-31); CHLORIDE LEVEL 106 MMOL/L (98-107); CHOLESTEROL LEVEL 132 MG/DL (<200); CHOLESTEROL RISK RATIO 3.53 (<5); CREATININE FOR GFR 0.87 MG/DL (0.70-1.30); GLOMERULAR FILTRATION RATE > 90.0 (>60); LDL CHOLESTEROL 68.1 MG/DL (<100); NON-HDL-C 94.7 MG/DL; POTASSIUM SERUM 4.6 MMOL/L (3.5-5.1); SODIUM LEVEL 142 MMOL/L (136-145); TRIGLYCERIDES LEVEL 133 MG/DL (<150)
[2025-07-09 11:11] LABS: FREE T4 1.14 NG/DL (0.89-1.76)
== END ==
LOC: M LAB 09:15
PROVIDERS: ATTEND Nurse Practitioner Family
DX: E11.9 Type 2 diabetes mellitus without complications (principal); E78.5 Hyperlipidemia, unspecified; J30.9 Allergic rhinitis, unspecified; R53.83 Other fatigue

== ENCOUNTER 2025-08-17 20:18 | Emergency (ER) | payer OTHER ==
[~2025-08-17] VITALS: Ht 185.4 cm; Wt 111.4 kg
[2025-08-17 20:19] VITALS: TEMP 97.3
[2025-08-17 22:13] VITALS: BP 141/82; O2SAT 94
[2025-08-17] MEDS: LIDOCAINE 1% MDV 20 ML VIAL IM ONE (23:45)
== END 2025-08-18 00:23 | disposition home or self-care (01) ==
LOC: M ED 20:18
DX: S01.81XA Laceration without foreign body of other part of head, initial encounter (principal); W29.3XXA Contact with powered garden and outdoor hand tools and machinery, initial encounter; Y93.L1 Activity, splitting wood; Y92.017 Garden or yard in single-family (private) house as the place of occurrence of the external cause; Y99.9 Unspecified external cause status; E11.9 Type 2 diabetes mellitus without complications; Z79.899 Other long term (current) drug therapy